=== PATIENT | male | born 1955 | race Caucasian/White ===

== ENCOUNTER → 2020-05-10 | Outpatient (CLI) | payer BC, OTHER | END | disposition home or self-care (01) | LOC: STAR 15:17 | PROVIDERS: ATTEND Orthopaedic Surgery | DX: Z01.812 Encounter for preprocedural laboratory examination (principal); Z20.828 Contact with and (suspected) exposure to other viral communicable diseases; M25.511 Pain in right shoulder; G56.03 Carpal tunnel syndrome, bilateral upper limbs | CPT/HCPCS: 87635; 93005 ==

== ENCOUNTER 2020-05-15 08:10 | Day surgery (SDC) | payer BC, OTHER ==
[~2020-05-15] VITALS: Ht 182.9 cm; Wt 76.0 kg
[2020-05-15] MEDS ORDERED: NO HOME MEDS (08:59)
[2020-05-15 09:00] VITALS: BP 132/81
[2020-05-15] MEDS ORDERED: CHLORHEXIDINE 15 ML UDC MM ONE (09:00)
[2020-05-15] MEDS ORDERED: LACTATED RINGERS 1,000 ML IV SCH (09:00)
[2020-05-15] MEDS ORDERED: CHLORHEXIDINE 15 ML UDC ONE (09:03)
[2020-05-15] MEDS ORDERED: MIDAZOLAM 1 MG/ML, 2ML ONE (10:05)
[2020-05-15] MEDS ORDERED: FENTANYL PF 100 MCG/2ML ONE (10:05)
[2020-05-15] MEDS ORDERED: BUPIVACAINE/PF 0.5% ONE (10:18)
[2020-05-15] MEDS ORDERED: LIDOCAINE-MPF 1%, 5ML ONE (10:18)
[2020-05-15] MEDS ORDERED: PROPOFOL 10 MG/ML, 20ML ONE (10:28)
[2020-05-15] MEDS ORDERED: morphine SULFATE 10 MG/ML, 1ML IVPush PRN (10:30)
[2020-05-15] MEDS ORDERED: FENTANYL PF 100 MCG/2ML IV PRN (10:30)
[2020-05-15] MEDS ORDERED: OXYcodone 5 MG/5 ML ORAL.SOL UDC PO PRN (10:30)
[2020-05-15] MEDS ORDERED: ONDANSETRON 2MG/ML, 2ML IVPush PRN (10:30)
[2020-05-15] MEDS ORDERED: ACETAMINOPHEN 325 MG TABLET PO PRN (10:30)
[2020-05-15] MEDS ORDERED: MEPERIDINE/PF 25MG/0.5ML IVPush PRN (10:30)
[2020-05-15] MEDS ORDERED: HYDROmorphone 1 MG/ML, 1ML INJ IVPush PRN (10:30)
== END 2020-05-15 12:15 | disposition home or self-care (01) ==
LOC: OUT 08:10
PROVIDERS: ATTEND Orthopaedic Surgery
DX: G56.03 Carpal tunnel syndrome, bilateral upper limbs (principal); Z82.49 Family history of ischemic heart disease and other diseases of the circulatory system
CPT/HCPCS: 64721; J2250; J2704; J3010; J7120

== ENCOUNTER → 2020-05-23 | Outpatient (CLI) | payer OTHER ==
[~2020-05-23] MED LIST: NO HOME MEDS
== END | disposition home or self-care (01) ==
LOC: STAR 15:52
PROVIDERS: ATTEND Orthopaedic Surgery
DX: Z20.828 Contact with and (suspected) exposure to other viral communicable diseases (principal)
CPT/HCPCS: 87635

== ENCOUNTER 2020-05-28 08:03 | Day surgery (SDC) | payer BC, OTHER ==
[~2020-05-28] VITALS: Ht 182.9 cm; Wt 76.0 kg
[2020-05-28] MEDS ORDERED: CHLORHEXIDINE 15 ML UDC MM STA (08:20)
[2020-05-28] MEDS ORDERED: CHLORHEXIDINE 15 ML UDC ONE (08:26)
[2020-05-28 08:37] VITALS: BP 137/92
[2020-05-28] MEDS ORDERED: LACTATED RINGERS 1,000 ML IV SCH (09:00)
[2020-05-28] MEDS ORDERED: BUPIVACAINE/PF 0.5% ONE (09:08)
[2020-05-28] MEDS ORDERED: LIDOCAINE-MPF 1%, 5ML ONE (09:08)
[2020-05-28] MEDS ORDERED: FENTANYL PF 100 MCG/2ML ONE (09:12)
[2020-05-28] MEDS ORDERED: MIDAZOLAM 1 MG/ML, 2ML ONE (09:13)
[2020-05-28] MEDS ORDERED: PROPOFOL 10 MG/ML, 20ML ONE (09:36)
[2020-05-28] MEDS ORDERED: FENTANYL PF 100 MCG/2ML IV PRN (10:00)
[2020-05-28] MEDS ORDERED: ACETAMINOPHEN 325 MG TABLET PO PRN (10:00)
[2020-05-28] MEDS ORDERED: PROMETHAZINE 25 MG/ML, 1ML IVPush PRN (10:00)
[2020-05-28] MEDS ORDERED: OXYcodone 5 MG/5 ML ORAL.SOL UDC PO PRN (10:00)
[2020-05-28] MEDS ORDERED: ONDANSETRON 2MG/ML, 2ML ONE (11:08)
[2020-05-28] MEDS ORDERED: KETOROLAC 30 MG/1 ML ONE (11:08)
== END 2020-05-28 10:45 | disposition home or self-care (01) ==
LOC: OUT 08:03
PROVIDERS: ATTEND Orthopaedic Surgery
DX: G56.02 Carpal tunnel syndrome, left upper limb (principal); Z79.84 Long term (current) use of oral hypoglycemic drugs; Z79.891 Long term (current) use of opiate analgesic; Z79.899 Other long term (current) drug therapy; Z82.49 Family history of ischemic heart disease and other diseases of the circulatory system
CPT/HCPCS: 64721; J1885; J2250; J2405; J2704; J3010; J7120

== ENCOUNTER → 2020-07-08 | Outpatient (CLI) | payer OTHER ==
[~2020-07-08] MED LIST changes: +OMNIPAQUE 350 MG/ML, 100ML BOTTLE ONE
[2020-07-08 10:44] LABS: CREATININE 1.26 mg/dL (0.7-1.3)
== END | disposition home or self-care (01) ==
LOC: RAD 10:04
PROVIDERS: ATTEND Internal Medicine
DX: R22.1 Localized swelling, mass and lump, neck (principal)
CPT/HCPCS: 36415; 70491; 82565; Q9967